=== PATIENT | female | born 1990 | race Caucasian/White ===

== ENCOUNTER 2016-03-23 06:48 | Emergency (ER) | payer BC ==
[~2016-03-23] VITALS: Ht 160 cm; Wt 117.9 kg
[2016-03-23 06:56] VITALS: BP 140/70
--- NOTE | 2016-03-23 07:02 | NUR ---
AMBULATED TO ER BED 3
--- NOTE | 2016-03-23 07:03 | NUR ---
PATIENT PRESENTS TO ED DUE TO RIGHT EAR PAIN,SOB,BODYACHES, COUGHING,RUNNY NOSE. PT STATES ITS BEEN GOING ON FOR 4 DAYS. DENIES N/V/D; SKIN IS PINK/WARM/DRY; AAOX4 WITH EVEN AND STEADY GAIT; LUNGS CLEAR BL; HR EVEN AND REGULAR; PATIENT STATES PAIN OF 8/10 AT THIS TIME; PATIENT POSITIONED FOR COMFORT; HOB ELEVATED; BEDRAILS UP X2; BED DOWN. ER MD MADE AWARE OF PT STATUS.
--- NOTE | 2016-03-23 07:31 | NUR ---
DR. SCALES AT BEDSIDE EVALUATING PT, MD AWARE OF THE RESULT OF URINE DIPSTICK AND PREG TEST.
[2016-03-23] MEDS ORDERED: NACL 0.9% 1,000 ML IV SCH (07:35)
[2016-03-23] MEDS ORDERED: IPRATROPIUM 0.02% 0.5 MG/2.5 ML NEBU INH ONE (07:40)
[2016-03-23] MEDS ORDERED: ALBUTEROL 0.083% 2.5 MG/3 ML NEBU INH ONE (07:40)
--- NOTE | 2016-03-23 08:12 | NUR ---
PT RECEIVING HHN AT THIS TIME, SKIN WARM TO TOUCH RESP. EVEN AND UNLABORED, IVF ONGOING, WELL TOLERATED.
--- NOTE | 2016-03-23 08:27 | NUR ---
ASSISTED PT TO THE BATHROOM ,PT AAO, NO SOB NOTED AT THIS TIME.
--- NOTE | 2016-03-23 09:31 | NUR ---
PT AAO, NO SOB NOTED, CLAIMED I FEEL TIRED, IVF ONGOING WELL TOLERATED, AT BEDSIDE
--- NOTE | 2016-03-23 10:18 | NUR ---
assisted pt again in the bathroom, gil beal
--- NOTE | 2016-03-23 10:54 | NUR ---
DR. SCALES AT BEDSIDE
[2016-03-23 11:09] VITALS: BP 146/92
--- NOTE | 2016-03-23 11:10 | NUR ---
Patient discharged with v/s stable. Written and verbal after care instructions given and explained. Patient alert, oriented and verbalized understanding of instructions. Ambulatory with steady gait. All questions addressed prior to discharge. ID band removed. Patient advised to follow up with PMD. Rx of TYLENOL AND ALBUTEROL given. Patient educated on indication of medication including possible reaction and side effects. Opportunity to ask questions provided and answered.
== END 2016-03-23 11:10 | disposition home or self-care (01) ==
LOC: MED 06:48
DX: O26.892 Other specified pregnancy related conditions, second trimester (principal); J11.1 Influenza due to unidentified influenza virus with other respiratory manifestations; J45.909 Unspecified asthma, uncomplicated; D17.9 Benign lipomatous neoplasm, unspecified
CPT/HCPCS: 36415; 80053; 81001; 81025; 82150; 83690; 85025; 94640; 96360; 96361; 99285; J7030; J7613; J7644